=== PATIENT | female | born 1995 | race Hispanic/Latino ===

== ENCOUNTER 2022-04-09 00:44 | Emergency (ER) | payer SELFPAY ==
[~2022-04-09] VITALS: Ht 157.5 cm; Wt 63.5 kg
== END 2022-04-09 03:10 | disposition home or self-care (01) ==
LOC: ER 00:58
DX: S93.402A Sprain of unspecified ligament of left ankle, initial encounter (principal); X58.XXXA Exposure to other specified factors, initial encounter
CPT/HCPCS: 99283

== ENCOUNTER 2023-08-12 21:19 | Emergency (ER) | payer SELFPAY ==
[~2023-08-12] VITALS: Ht 157.5 cm; Wt 63.5 kg
[2023-08-12 21:26] VITALS: O2SAT 100
[2023-08-12] MEDS ORDERED: MEDROL4 M2 PO (21:36)
== END 2023-08-12 21:46 | disposition home or self-care (01) ==
LOC: ER 21:30
DX: R21 Rash and other nonspecific skin eruption (principal)
CPT/HCPCS: 99283

== ENCOUNTER 2025-01-27 13:53 | Emergency (ER) | payer OTHER ==
[~2025-01-27] VITALS: Ht 157.5 cm; Wt 74.8 kg
[~2025-01-27 13:53] MED LIST: MEDROL4 M2 PO
[2025-01-27 15:00] VITALS: PULSE 84; RESP 16; TEMP 97.7
[2025-01-27 15:26] LABS: BASOPHILS % 0.2 % (0.0-1.0); EOSINOPHILS # (AUTO) 0.1 (0.0-0.4); EOSINOPHILS % 0.6 % (0.0-6.0); HEMATOCRIT 35.4 % (34.2-44.1); HEMOGLOBIN 11.4 g/dL (12.0-16.0); LYMPHOCYTES # (AUTO) 2.7 (1.0-3.2); LYMPHOCYTES % 21.5 % (18.0-39.1); MEAN CORPUSCULAR HEMOGLOBIN 27.2 pg (28-32); MEAN CORPUSCULAR HGB CONC 32.2 g/dL (31-35); MEAN CORPUSCULAR VOLUME 84.5 fL (81-99); MONOCYTES # (AUTO) 0.5 (0.2-0.8); MONOCYTES % 3.7 % (4.4-11.3); NEUTROPHILS # (AUTO) 9.4 (2.1-6.9); NEUTROPHILS % 73.8 % (38.7-80.0); PLATELET COUNT 400 x10e3/uL (140-360); RED BLOOD COUNT 4.19 x10e6/uL (3.6-5.1); RED CELL DISTRIBUTION WIDTH 15.4 % (11.7-14.4); WHITE BLOOD COUNT 12.67 x10e3/uL (4.8-10.8)
[2025-01-27 15:31] LABS: INR 0.87; PROTHROMBIN TIME 12.4 seconds (11.9-14.5)
[2025-01-27 15:32] LABS: PARTIAL THROMBOPLASTIN TIME 26.7 seconds (23.8-35.5)
[2025-01-27 15:42] LABS: ALANINE AMINOTRANSFERASE 24 IU/L (0-55); ALBUMIN 3.8 g/dL (3.5-5.0); ALKALINE PHOSPHATASE 79 IU/L (40-150); ANION GAP 13.7 mmol/L (8-16); BILIRUBIN,TOTAL 0.3 mg/dL (0.2-1.2); BLOOD UREA NITROGEN 8 mg/dL (7-26); BUN/CREATININE RATIO 12 (6-25); CALCIUM 8.5 mg/dL (8.4-10.2); CARBON DIOXIDE 22 mmol/L (22-29); CHLORIDE 105 mmol/L (98-107); CREATININE, SERUM 0.68 mg/dL (0.57-1.11); EST GLOMERULAR FILTRATION RATE 122 ML/MIN (>=60); GLUCOSE 92 mg/dL (74-118); LIPASE 28 U/L (8-78); MAGNESIUM 1.7 MG/DL (1.3-2.1); POTASSIUM 3.7 mmol/L (3.5-5.1); SODIUM 137 mmol/L (136-145); TOTAL PROTEIN 7.6 g/dL (6.5-8.1)
[2025-01-27] MEDS: SODIUM CHLORIDE 0.9% 1000ML 1,000 ML IV STA (15:43)
[2025-01-27] MEDS: ONDANSETRON HCL INJ 2MG/ML 2ML 2 MG/ML VIAL IV STA (15:44)
[2025-01-27] MEDS: KETOROLAC TROMETHAMINE 30 MG/ML VIAL IV STA (15:44)
[2025-01-27 15:47] LABS: TROPONIN I 0.002 ng/mL (0-0.300)
[2025-01-27] MEDS ORDERED: PANTOPRAZOLE SO40 MG PO (17:29)
[2025-01-27] MEDS ORDERED: ONDANSETRON ODT4 MG PO (17:29)
[2025-01-27] MEDS ORDERED: DICYCLOMINE HCL20 MG PO (17:29)
[2025-01-27 17:50] VITALS: BP 98/66; PULSE 71; RESP 17; TEMP 97.7; O2SAT 100
== END 2025-01-27 17:52 | disposition home or self-care (01) ==
LOC: ER 15:09
DX: R10.11 Right upper quadrant pain (principal); K80.20 Calculus of gallbladder without cholecystitis without obstruction; R11.2 Nausea with vomiting, unspecified; R19.7 Diarrhea, unspecified
CPT/HCPCS: 36415; 71045; 74177; 76705; 80053; 83690; 83735; 84484; 84702; 85025; 85610; 85730; 99284; J1885; J2405; J2470; J7030